=== PATIENT | female | born 1935 | race Hispanic/Latino ===

== ENCOUNTER 2016-09-26 11:17 | Day surgery (SDC) | payer MEDICARE ==
[~2016-09-26 11:17] MED LIST: IOPIDINE OD ONE; IOPIDINE ONE; MYDRIACYL OD ONE; MYDRIACYL ONE; NEOFRIN OD ONE; NEOFRIN ONE
[2016-09-26 12:07] VITALS: BP 140/50
[2016-09-26] MEDS ORDERED: IOPIDINE OD ONE (12:15)
[2016-09-26] MEDS ORDERED: NEOFRIN OD ONE (12:15)
[2016-09-26] MEDS ORDERED: MYDRIACYL OD ONE (12:15)
== END 2016-09-26 11:18 | disposition home or self-care (01) ==
LOC: OR 11:17
PROVIDERS: ATTEND Specialist
DX: H26.491 Other secondary cataract, right eye (principal)

== ENCOUNTER 2016-10-17 11:26 | Day surgery (SDC) | payer MEDICARE ==
[2016-10-17] MEDS ORDERED: IOPIDINE ONE (11:52)
[2016-10-17] MEDS ORDERED: AK-Dilate ONE ×2 (11:52→12:11)
[2016-10-17] MEDS ORDERED: MYDRIACYL ONE (11:54)
[2016-10-17] MEDS ORDERED: NEOFRIN ONE (12:09)
[2016-10-17] MEDS ORDERED: IOPIDINE OS ONE (12:17)
[2016-10-17] MEDS ORDERED: MYDRIACYL OS ONE (12:17)
[2016-10-17] MEDS ORDERED: NEOFRIN OS ONE (12:17)
[2016-10-17 12:24] VITALS: BP 126/54
== END 2016-10-17 12:52 | disposition home or self-care (01) ==
LOC: OR 11:26
PROVIDERS: ATTEND Specialist
DX: H26.492 Other secondary cataract, left eye (principal)